=== PATIENT | female | born 1970 | race Caucasian/White ===

== ENCOUNTER 2017-07-21 00:59 | Emergency (ER) | payer MEDICAID ==
[~2017-07-21] VITALS: Ht 170.2 cm; Wt 86.2 kg
[2017-07-21 01:04] VITALS: BP 125/69
--- NOTE | 2017-07-21 01:54 | NUR ---
PT TAKEN TO [facility]
--- NOTE | 2017-07-21 01:57 | NUR ---
Dr. Gutiérrez evaluating patient
[2017-07-21] MEDS ORDERED: CYCLOBENZAPRINE 10 MG TAB PO ONE (02:15)
[2017-07-21] MEDS ORDERED: oxyCODONE/APAP 5/325 MG 1 TAB TAB PO ONE (02:15)
--- NOTE | 2017-07-21 02:49 | NUR ---
PT MOVED TO BED 8
[2017-07-21] MEDS ORDERED: HYDROmorphone 1 MG/ML AMP IM ONE (02:50)
[2017-07-21] MEDS ORDERED: ONDANSETRON 4 MG ODT PO ONE (03:20)
--- NOTE | 2017-07-21 03:43 | NUR ---
47 Y/O F W/C/O HEADACHE X YESTERDAY. PT RSTING IN BED, VSS WILL CONT TO MONITOR.
[2017-07-21 04:53] VITALS: BP 111/65
--- NOTE | 2017-07-21 04:53 | NUR ---
Patient discharged with v/s stable. Written and verbal after care instructions given and explained. Patient alert, oriented and verbalized understanding of instructions. Ambulatory with steady gait. All questions addressed prior to discharge. ID band removed. Patient advised to follow up with PMD. Rx of PERCOCET AND FLORICET given. Patient educated on indication of medication including possible reaction and side effects. Opportunity to ask questions provided and answered.
== END 2017-07-21 04:53 | disposition home or self-care (01) ==
LOC: MED 00:59
DX: G44.209 Tension-type headache, unspecified, not intractable (principal); G89.4 Chronic pain syndrome; M79.1 Myalgia
CPT/HCPCS: 96372; 99284; J1170; S0119

== ENCOUNTER 2017-07-30 19:01 | Emergency (ER) | payer MEDICAID ==
[~2017-07-30] VITALS: Ht 170.2 cm; Wt 88.9 kg
[2017-07-30 19:21] VITALS: BP 140/81
--- NOTE | 2017-07-30 19:56 | NUR ---
PATIENT LEFT WITHOUT BEING SEEN BY DR. COLUNGA. NO FURTHER CARE PROVIDED FOR PATIENT.
== END 2017-07-30 19:56 | disposition left against medical advice (07) ==
LOC: MED 19:01
DX: R07.9 Chest pain, unspecified (principal); Z53.21 Procedure and treatment not carried out due to patient leaving prior to being seen by health care provider

== ENCOUNTER 2017-10-27 11:53 | Emergency (ER) | payer OTHER ==
[~2017-10-27] VITALS: Ht 175.3 cm; Wt 95.7 kg
[2017-10-27 12:10] VITALS: BP 136/90
--- NOTE | 2017-10-27 12:23 | NUR ---
influenza collected---pt to cxr
--- NOTE | 2017-10-27 12:34 | NUR ---
PT AMBULATED TO BED 3.
--- NOTE | 2017-10-27 12:35 | NUR ---
47F BIB SELF C/O PRODUCTIVE COUGH WITH GREEN PHLEGM AND CONGESTION X 2 WEEKS; PT C/O SHARP "LEFT LUNG PAIN", RADIATES TO LEFT BACK, 8/10 AT THIS TIME, WORSENING WITH BREATHING OR MOVEMENT; WHEEZES HEARD THROUGHOUT, RR EVEN/UNLABORED AT THIS TIME; PT AA&OX4, PERRLA, STATES NO N/V/D AT THIS TIME; SKIN IS WARM/DRY/INTACT AT THIS TIME; STEADY GAIT; PT RESTING IN BED WITH HOB ELEVATED AND IN LOWEST POSITION; POSITIONED FOR COMFORT; ER MD MADE AWARE OF STATUS. WILL CONTINUE TO MONITOR.
[2017-10-27] MEDS ORDERED: ALBUTEROL SULFATE/IPRATROPIU 3 ML SOL IH ONE (13:10)
[2017-10-27] MEDS ORDERED: predniSONE 20 MG TAB PO ONE (13:10)
--- NOTE | 2017-10-27 13:20 | NUR ---
RT AT BEDSIDE.
[2017-10-27 13:43] VITALS: BP 136/90
--- NOTE | 2017-10-27 13:44 | NUR ---
Patient discharged with v/s stable. Written and verbal after care instructions given and explained. Patient alert, oriented and verbalized understanding of instructions. Ambulatory with steady gait. All questions addressed prior to discharge. ID band removed. Patient advised to follow up with PMD. Rx of zithromax and prednisone given. Patient educated on indication of medication including possible reaction and side effects. Opportunity to ask questions provided and answered.
== END 2017-10-27 13:44 | disposition home or self-care (01) ==
LOC: MED 11:53
DX: J20.9 Acute bronchitis, unspecified (principal); J44.9 Chronic obstructive pulmonary disease, unspecified; I10 Essential (primary) hypertension; E78.5 Hyperlipidemia, unspecified; F17.210 Nicotine dependence, cigarettes, uncomplicated; Z71.6 Tobacco abuse counseling
CPT/HCPCS: 36415; 71045; 87804; 94640; 99285; J7512; J7620